=== PATIENT | male | born 1975 | race Caucasian/White ===

== ENCOUNTER 2017-01-12 22:08 | Emergency (ER) | payer MEDICARE, OTHER ==
[2017-01-12 22:44] LABS: URINE BILIRUBIN NEGATIVE (NEGATIVE); URINE BLOOD TRACE (NEGATIVE); URINE GLUCOSE (UA) NORMAL (NORMAL); URINE KETONE TRACE (NEGATIVE); URINE LEUKOCYTE ESTERASE NEGATIVE (NEGATIVE); URINE NITRATE NEGATIVE (NEGATIVE); URINE PROTEIN TRACE (NEGATIVE); UROBILINOGEN NORMAL mg/dL (<1.0)
[2017-01-12 22:52] LABS: URINE RBC 0-5 /[HPF] (0-2)
[2017-01-12 23:45] LABS: BASO % 0.2 % (0.2-1.2); EOS # 0.1 10_X3_uL (0.0-0.5); EOS % 0.8 % (0.8-7.0); GRAN # 7.5 10_X3_uL (1.8-5.4); GRAN % 68.4 % (34.0-67.9); HEMATOCRIT 40.1 % (40-51); HEMOGLOBIN 14.1 g/dL (13.7-17.5); LYMPH # 2.6 10_X3_uL (1.3-3.6); LYMPH % 23.7 % (21.8-53.1); MEAN CORPUSCULAR HEMOGLOBIN 28.8 pg (27.0-33.0); MEAN CORPUSCULAR HGB CONC 35.2 g/dL (32.0-36.0); MEAN CORPUSCULAR VOLUME 81.8 fL (79-92); MEAN PLATELET VOLUME 8.7 fl (7.5-11.5); MONO # 0.8 10_X3_uL (0.3-0.8); MONO % 6.9 % (5.3-12.2); PLATELET COUNT 364 x10_3/uL (163-337); RED CELL DISTRIBUTION WIDTH 13.3 % (11.6-14.4)
[2017-01-13] LABS: ALBUMIN 4.5 gm/dL (3.4-5.0); ALKALINE PHOSPHATASE 65 U/L (50-136); ALT/SGPT 16 U/L (7.53-40.17); AST/SGOT 18 U/L (6.66-35.34); BILIRUBIN,TOTAL 0.78 mg/dL (0.0-1.0); BLOOD UREA NITROGEN 8 mg/dL (7-18); CALCIUM 9.4 mg/dL (8.7-10.7); CARBON DIOXIDE 26 mmol/L (21-32); CREATININE 0.8 mg/dL (0.6-1.3); GLUCOSE,RANDOM 112 mg/dL (70-99); POTASSIUM 3.3 mmol/L (3.5-5.1); SODIUM 134 mmol/L (136-145); TOTAL PROTEIN 7.7 gm/dL (6.4-8.2)
== END 2017-01-13 03:15 | disposition home or self-care (01) ==
LOC: ER 22:08
PROVIDERS: Emergency Medicine
DX: K52.9 Noninfective gastroenteritis and colitis, unspecified (principal); K92.1 Melena; R10.31 Right lower quadrant pain; R11.2 Nausea with vomiting, unspecified
CPT/HCPCS: 36415; 80053; 81001; 83605; 85025; 87040; 96374; 96375; 99284; 99284-25; G0328-QW; J7040; Q9967

== ENCOUNTER 2017-02-26 21:02 | Emergency (ER) | payer MEDICARE, OTHER | END 2017-02-26 21:15 | disposition home or self-care (01) | LOC: ER 21:02 | DX: L56.8 Other specified acute skin changes due to ultraviolet radiation (principal); W89.1XXA Exposure to tanning bed, initial encounter; F17.210 Nicotine dependence, cigarettes, uncomplicated; Z79.899 Other long term (current) drug therapy | CPT/HCPCS: 99282; 99283 ==